=== PATIENT | male | born 1990 | race Caucasian/White ===

== ENCOUNTER 2023-02-21 13:42 | Inpatient (IN) ==
[2023-02-21 14:32] LABS: Basophils # (auto) 0.05 K/uL (0.00-0.20); Basophils % (auto) 0.8 %; Eosinophils # (auto) 0.26 K/uL (0.00-0.50); Eosinophils % (auto) 4.4 %; Hemoglobin 12.8 g/dl (14.0-18.0); Immature Granulocytes # (auto) 0.01 K/uL (0.01-0.20); Immature Granulocytes % (auto) 0.2 %; Lymphocytes # (auto) 1.33 K/uL (1.20-3.40); Lymphocytes % (auto) 22.3 %; Mean Corpuscular Hemoglobin 29.1 pg (25.0-34.0); Mean Corpuscular Hgb Conc 34.6 g/dL (32.0-36.0); Mean Corpuscular Volume 84.1 fL (80.0-100.0); Mean Platelet Volume 8.4 fL (9.4-12.4); Monocytes # (auto) 0.39 K/uL (0.11-0.59); Monocytes % (auto) 6.5 %; Neutrophils # (auto) 3.92 K/uL (1.40-6.50); Neutrophils % (auto) 65.8 %; Platelet Count 187 K/uL (130-400); RDW Coefficient of Variation 12.7 % (11.5-14.5); RDW Standard Deviation 39.1 fL (36.4-46.3); White Blood Count 5.96 K/ul (4.8-10.8)
[2023-02-21] MEDS ORDERED: PIPERACILLIN/TAZOBACTAM 4.5 GM/100 ML BAG IV ONE (14:43)
[2023-02-21] MEDS ORDERED: ACETAMINOPHEN 1,000 MG/100 ML VIAL IV STA (14:43)
[2023-02-21] MEDS ORDERED: SODIUM CHLORIDE 0.9% 1,000 ML IV ONE (14:43)
[2023-02-21 14:48] LABS: Albumin Level 4.3 gm/dl (3.4-5.0); BUN Creatinine Ratio 15.9 (10-20); Bilirubin,Total 0.6 mg/dl (0.2-1.0); Calcium 9.2 mg/dl (8.6-10.3); Creatinine Clr Calc Pharmacy 160.2 ml/min; Est GFR (African American) 146.6 ml/min; Est GFR (Non-African American) 126.5 ml/min; Globulin 2.2 gm/dl (2.5-4.0); Potassium 3.9 mmol/L (3.5-5.1); Total Protein 6.5 gm/dl (6.0-8.3)
--- NOTE | 2023-02-21 14:49 | Emergency Department Note ---
Impression & Plan Cellulitis of hand, left ED Provider Note HISTORY OF PRESENT ILLNESS: Patient is a 32-year-old male presenting with left hand redness and swelling. Patient reports that he thought he had an infected hair follicle 2 days ago and plucked the hair out of the dorsal surface of his left ring finger. He states that last night he noticed that the left ring finger was very red and swollen and went to [facility] where they lanced what they thought was an infected follicle. The patient reports no pus came out but he did have some blood drainage from the site. He states that since last night, there is swelling and redness and pain in his left hand is significantly worsened. He denies any measured fevers at home. He was given a dose of IM Rocephin yesterday at [facility] and was sent home with an oral antibiotic, the patient reports he has not taken it yet. Patient is left-hand dominant. He states that he is unable to move his left ring finger secondary to pain. He reports redness, swelling and pain extending from the ring finger down into his hand and extending into his wrist. Denies any numbness or tingling in the extremity. Denies any direct injury to the finger. His tetanus is up-to-date. ROS: as above PHYSICAL EXAM: Constitutional: Patient appears in no acute distress. HENT: Head: Normocephalic and atraumatic. Eyes: EOMI, PERRL Mouth/Throat: Mucous membranes moist. Neck: Trachea midline. Neck supple. Musculoskeletal: - LUE: Patient has redness and swelling to the dorsal surface of the hand. Left ring finger shows fusiform swelling. It is resting in a flexed position. Patient does have tenderness with passive extension of the finger. He has swelling and erythema and tenderness to palpation extending to the volar surface of the palm. Intact radial pulse. He does have a scab just proximal to the PIP joint on the ring finger. Able to flex and extend the wrist without significant pain. Skin: Warm and dry. No rash, erythema, pallor or cyanosis Psychiatric: Appropriate mood and affect for situation. Neurological: Alert and keenly responsive. CN II-XII grossly intact, moving all extremities equally and fully. MDM: - Vitals signs showed tachycardia - History obtained via patient. Patient presents with left hand redness, pain and swelling. Patient reports he thought he had an infected hair follicle on the dorsal surface of his left ring finger 2 days ago. He pluck the hair out but states that yesterday he noticed his left ring finger was very red and swollen and went to [facility]. He states that they drained some blood-tinged fluid from that area of his left finger. He denies any fevers. He states that since last night the swelling and redness of his left hand has significantly worsened. He is left-hand dominant. Tetanus is up-to-date - Chronic conditions affecting care: depression - Differential diagnoses include, but are not limited to: cellulitis of hand; flexor tenosynovitis; felon; paronychia - Order placed for continuous cardiac monitoring. At this time, monitor showed rate of 87 bpm with normal sinus rhythm, per my interpretation. - External medical records reviewed. PCP note dated 01/05/2023 was reviewed. Patient follows with his PCP for GERD and depression and was started on sertraline that was increased during that visit. - Laboratory workup interpreted by myself showed normal WBC; stable electrolytes; negative procalcitonin; elevated CRP (1.12) - Patient given 1L NS, 1g IV tylenol and IV zosyn for antibiotic coverage. - Patient has 4/4 Kanavel's signs, concerning for flexor tenosynovitis of left ring finger. - Discussed case with orthopedist continuous improvement facilitator, Dr. Frankel. He requested an MRI of the hand. Recommends admission to medicine. - Discussion was had with transitional care liaison about patient's case and need for admission - Hospitalist consulted for admission - [facility] ASSESSMENT AND PLAN: Diagnosis: cellulitis of left hand Plan: admit Past Med/Surg History Social History Smoking Status: Current every day smoker Tobacco Type: Cigarettes and E-cigarettes / Vaping Age Started Using Tobacco: 13; Second Hand Exposure: Yes; Do You Dip or Chew Tobacco: Yes; Hx Alcohol Use: No Hx Substance Use: No Preferred Language: Maori Communication Ability: Effective Beliefs That Will Affect Care: None marital status: Single Current Living Situation: Significant Other current occupational status: employed How many Children do You have: 0 Feels Safe at Home: Yes Childhood Exposure to Second-Hand Smoke: Yes Diet: regular caffeine: Yes during the past year weight has: remained stable Dental Care, Regularly: No Physical Activity Frequency: Daily Seatbelt Use: always Sunscreen Use: Yes Allergies Allergies Allergy/AdvReac Type Severity Reaction Status Date / Time No Known Allergies Allergy Verified 01/05/23 11:38 Home Meds Home Medications Medication Instructions Recorded Confirmed buprenorphine HCl 8 mg sublingual 8 mg sublingual DAILY 01/29/22 01/05/23 tablet Previous Rx's Medication Instructions Recorded pantoprazole 40 mg tablet,delayed 40 mg PO BID #60 tabs 01/05/23 release Results & Data (ED) Vital Signs Vital Signs - 24 hr 02/21/23 13:46 02/21/23 13:58 02/21/23 14:12 Temperature 36.6 C 36.8 C Temperature Source Temporal Artery Scan Oral Pulse Rate 105 H Pulse Rate [Apical] 88 Pulse Rhythm [Apical] Regular Pulse Strength [Apical] Normal Respiratory Rate 19 16 Respiratory Effort / Characteristics Non-Labored Spontaneous Respiratory Depth Normal Respiratory Pattern Regular Blood Pressure 140/85 Blood Pressure Mean 103 Pulse Oximetry 95 96 97 Oxygen Delivery Method Room Air Room Air Room Air Sepsis Recent Fever Within 48 Hours No Sepsis New/Unexplained Change in Mental Status N/A Sepsis Action Taken by Nursing No Action Required 02/21/23 15:25 Temperature Temperature Source Pulse Rate 94 H Pulse Rate [Apical] Pulse Rhythm [Apical] Pulse Strength [Apical] Respiratory Rate Respiratory Effort / Characteristics Respiratory Depth Respiratory Pattern Blood Pressure Blood Pressure Mean Pulse Oximetry Oxygen Delivery Method Sepsis Recent Fever Within 48 Hours Sepsis New/Unexplained Change in Mental Status Sepsis Action Taken by Nursing Laboratory Data 02/21/23 14:17 02/21/23 14:17 Lab Results 02/21/23 Range/Units 14:17 WBC 5.96 (4.8-10.8) K/ul RBC 4.40 L (4.70-6.10) M/uL Hgb 12.8 L (14.0-18.0) g/dl Hct 37.0 L (42.0-52.0) % MCV 84.1 (80.0-100.0) fL MCH 29.1 (25.0-34.0) pg MCHC 34.6 (32.0-36.0) g/dL RDW Std Deviation 39.1 (36.4-46.3) fL RDW Coeff of Eric 12.7 (11.5-14.5) % Plt Count 187 (130-400) K/uL MPV 8.4 L (9.4-12.4) fL Immature Gran % (Auto) 0.2 % Neut % (Auto) 65.8 % Lymph % (Auto) 22.3 % [place] % (Auto) 6.5 % Eos % (Auto) 4.4 % Baso % (Auto) 0.8 % Neut # (Auto) 3.92 (1.40-6.50) K/uL Lymph # (Auto) 1.33 (1.20-3.40) K/uL [place] # (Auto) 0.39 (0.11-0.59) K/uL Eos # (Auto) 0.26 (0.00-0.50) K/uL Baso # (Auto) 0.05 (0.00-0.20) K/uL Immature Gran # (Auto) 0.01 (0.01-0.20) K/uL Sodium 139 (136-145) mmol/L Potassium 3.9 (3.5-5.1) mmol/L Chloride 105 (98-107) mmol/L Carbon Dioxide 28 (21-32) mmol/L Anion Gap 6 (3-11) BUN 11 (6-23) mg/dl Creatinine 0.69 (0.6-1.4) mg/dl Est Cr Clr Drug Dosing 160.2 ml/min Est GFR ( Amer) 146.6 ml/min Est GFR (Non-Af Amer) 126.5 ml/min BUN/Creatinine Ratio 15.9 (10-20) Glucose 94 (70-99(Fasting)) mg/dl Lactate 1.0 (0.4-2.0) mmol/L Calcium 9.2 (8.6-10.3) mg/dl Total Bilirubin 0.6 (0.2-1.0) mg/dl AST 29 (13-39) U/L ALT 25 (7-52) U/L Alkaline Phosphatase 47 (34-104) U/L C-Reactive Protein 1.12 H (0-0.5) mg/dl Total Protein 6.5 (6.0-8.3) gm/dl Albumin 4.3 (3.4-5.0) gm/dl Globulin 2.2 L (2.5-4.0) gm/dl Albumin/Globulin Ratio 2.0 (0.9-2) Procalcitonin < 0.05 (0-0.5) ng/ml Administered Medications Discontinued Medications Sodium Chloride (Nss) 1,000 mls @ 999 mls/hr IV .Q1H1M ONE Stop: 02/21/23 15:43 Last Admin: 02/21/23 15:06 Dose: 999 mls/hr Documented By: FUNMI Acetaminophen (Ofirmev) 1,000 mg in 100 mls @ 400 mls/hr IV NOW STA Stop: 02/21/23 14:57 Last Infusion: 02/21/23 15:46 Dose: Infused Documented By: Admin: 02/21/23 15:06 Dose: 400 mls/hr Documented By: FUNMI Piperacillin Sod/Tazobactam Sod (Zosyn) 4.5 gm in 100 mls @ 200 mls/hr IV NOW ONE Stop: 02/21/23 15:12 Last Admin: 02/21/23 15:43 Dose: 200 mls/hr Documented By: FUNMI Discharge Plan Visit Data Chief Complaint: Infection Stated Complaint: INFECTED FINGER ED Provider: Franci Correa Discharge Problem: Cellulitis of hand, left Forms [facility] Pres[facility] Prescriptions: No Action buprenorphine HCl 8 mg tablet, sublingual 8 mg sublingual DAILY pantoprazole 40 mg tablet,delayed release (DR/EC) 40 mg PO BID Qty: 60 1RF Referrals Referrals: Buddy Lincoln DO [Primary Care Provider] -
[2023-02-21 15:10] LABS: C Reactive Protein 1.12 mg/dl (0-0.5)
--- NOTE | 2023-02-21 16:10 | History & Physical Report ---
Date of Service February 21, 2023 Assessment & Plan (1) Cellulitis of hand, left: Plan: Swollen and painful left dorsal ring finger x2 days Infected [facility] Patient is L-hand dominant Concern for flexor tenosynovitis No leukocytosis; afebrile CRP elevated at 1.12 Left hand MRI ordered, pending Patient was started on Zosyn in the ED Zosyn 4.5 g IV q8h Daptomycin IV q24h Acetaminophen 650 mg q6h as needed for pain Orthopedic surgery consulted A.m. CBC, BMP, CRP (2) Opioid use disorder in remission: Plan: Patient is currently in a Suboxone program Continue buprenorphine SL daily (3) GERD (gastroesophageal reflux disease): Plan: Continue pantoprazole (4) Depression: Plan: Patient is no longer taking sertraline Plan Disposition: Admit to [facility] Full code Regular diet VTE PPx: Lovenox 40 mg SQ q24h History of Present Illness Primary Care Provider: DO Krupa Valverdee is a 32-year-old male with PMH of GERD, depression, and opioid use disorder in remission. He presented for a swollen and painful left hand x2 days. [facility] and had an infected hair follicle lanced on the dorsal aspect of his left ring finger. No purulent drainage upon lancing, only blood. The patient reports he got an antibiotic given in the rectum [facility] at [facility] (likely ceftri[facility]one), and was sent home on a antibiotic prescription which she is not taking it. At present, the left fourth digit is stuck in flexion and unable to extend fully. He rates the pain in his left dorsal hand as 6/10. He describes it as constant, throbbing. The pain radiates to the mid forearm, and is warm to touch. The patient is left-hand dominant. He has a history of plucking hairs on his left fourth digit. It should be noted that the patient has been taking amoxicillin but unknown dose, 1 tablet daily x3 days; he obtain this from an old leftover prescription. Patient denies alcohol and recreational drug use. He endorses tobacco cigarette smoking; 1 pack/day; and vaping. He took his buprenorphine this morning; no other medications. Vital stable at time of admission. ED course: IVF Acetaminophen 1000 mg IV Zosyn 4.5 g IV ROS: Patient endorses left dorsal hand pain, left fourth digit pain/swelling, and fatigue. Patient denies fever, chills, sweats, dizziness, lightheadedness, body aches, CP, SOB, abdominal pain, N/V/D, burning with urination, blood in the urine/stool, Allergies Allergy/AdvReac Type Severity Reaction Status Date / Time No Known Allergies Allergy Verified 01/05/23 11:38 Home Medications Medication Instructions Recorded Confirmed Type buprenorphine HCl 8 mg sublingual 8 mg sublingual DAILY 01/29/22 02/21/23 History tablet pantoprazole 40 mg tablet,delayed 40 mg PO BID PRN stomach 02/21/23 02/21/23 History release indigestion Past Med/Surg History Social History Smoking Status: Current every day smoker Tobacco Type: Cigarettes and E-cigarettes / Vaping Age Started Using Tobacco: 13; Second Hand Exposure: No; Do You Dip or Chew Tobacco: No; Tobacco Cessation Education Requested by Patient: No Hx Alcohol Use: No Hx Substance Use: Yes Substance Use Type Other:: on sobutex (prescribed) Preferred Language: Canadian Communication Ability: Effective Administration Internship Required: No Beliefs That Will Affect Care: None marital status: Single Current Living Situation: Significant Other current occupational status: employed How many Children do You have: 0 Other Information That Helps Us Care for You: No Feels Safe at Home: Yes Childhood Exposure to Second-Hand Smoke: Yes Diet: regular caffeine: Yes during the past year weight has: remained stable Dental Care, Regularly: No Physical Activity Frequency: Daily Seatbelt Use: always Sunscreen Use: Yes Assistive Devices: None Review of Systems 2 Review of Systems: See HPI above Physical Exam 2 Physical Exam: General: no acute distress; non-toxic appearing; well-nourished; cooperative HEENT: normocephalic, atraumatic; no scleral icterus; PERRLA w/ EOMs intact; moist mucus membrane; tongue stud; vision and hearing grossly intact Neck: supple; no JVD; no lymphadenopathy; trachea midline Skin: warm, dry without signs of tenting; no cyanosis; no rashes, bruising, lesions, or erythema noted Right hand: Dorsal aspect of right hand is erythematous to the wrist, hot to touch; right fourth digit scabbing, swollen at the proximal MCP (see photo below); fourth digit stuck in flexion, unable to fully extend CV: chest wall NTP; RRR; S1/S2 normal; no murmurs/rubs/gallops; pulses intact and symmetric at radial, DP, and PT Lungs: no acute respiratory distress; symmetrical chest wall expansion; clear breath sounds across all lung franco w/o adventitious sounds; no wheezing ABD: Soft, NTP; BS present; no rebound/guarding; no ascites; no distention; negative CVA tenderness MSK: no tics or fasciculations; no edema noted in the LEs b/l Neuro: A&Ox3; normal mood and affect; fluent speech; no focal deficits; sensation grossly intact in the LEs B/L; sensation intact to distal tip of fourth digit on left hand Results & Data Results & Data Vital Signs (Past 12 Hours) Vital Signs Temp Pulse Pulse Resp BP Pulse Ox O2 Del Method 02/21/23 15:25 94 H 02/21/23 14:12 97 Room Air 02/21/23 13:58 36.8 C 88 16 96 Room Air 02/21/23 13:46 36.6 C 105 H 19 140/85 95 Room Air Laboratory Results Abnormal lab results 02/21/23 Range/Units 14:17 RBC 4.40 L (4.70-6.10) M/uL Hgb 12.8 L (14.0-18.0) g/dl Hct 37.0 L (42.0-52.0) % MPV 8.4 L (9.4-12.4) fL C-Reactive Protein 1.12 H (0-0.5) mg/dl Globulin 2.2 L (2.5-4.0) gm/dl Diagnostic Findings Hand MRI 02/21/23 15:53 MR hand LT wo/w con HISTORY: Left hand swelling and pain. left ring finger concern for flexor tenosynovitis TECHNIQUE: Multiplanar multisequence MRI of the left hand was performed both before and after the intravenous administration of 8 cc of Gadavist contrast. COMPARISON STUDY: None. FINDINGS: There is a normal marrow signal intensity seen throughout the visualized osseous structures. No fracture or dislocation within the left hand. No destructive changes to suggest an osteomyelitis. Diffuse subcutaneous edema most pronounced within the dorsum of the hand and fourth finger with associated enhancement. This favors a cellulitis. The flexor and extensor tendons are normal and course, caliber, and signal intensity. No fluid within the tendon sheaths to suggest a tenosynovitis. There is a skin marker overlying the dorsal aspect of the proximal ring finger at the level the proximal phalanx. Deep to the skin marker there is an area of hypoenhancement within the subcutaneous soft tissues measuring approximately 19 x 10 x 5 mm. Therefore, this is consistent with a small subcutaneous abscess. IMPRESSION: 1. Diffuse subcutaneous edema and enhancement within the soft tissues of the left hand most pronounced within the dorsum of the hand and fourth finger. This consistent with a cellulitis. 2. No evidence for osteomyelitis. 3. There is a skin marker overlying the dorsal aspect of the proximal ring finger at the level the proximal phalanx. Deep to the skin marker there is an area of hypoenhancement within the subcutaneous soft tissues measuring approximately 19 x 10 x 5 mm. Therefore, this is consistent with a small subcutaneous abscess. ACT 112: Negative or not required by law. Electronically signed by: Charly Ellison M.D. 02/21/2023 6:07 PM Code Status & VTE Plan Code Status Full code VTE Prophylaxis Plan VTE Prophylaxis will be ordered: Yes Supervising Physician Co-Signing Physician Notes Patient seen and examined, chart reviewed, case discussed with Charly De Jesus PA-C and I agree with the assessment and plan as above except as otherwise noted Labs and images reviewed Kehinde is a 32-year-old male with a past medical history of alcohol and opiate abuse on buprenorphine recently tapered from 8 mg twice daily down to 8 mg daily and takes 4 mg twice daily who presents with L hand 4th finger cellulitis ?tenosynovitis. WOrsening for several days, was lanced at urgent care. Was prescribed bactrim after but did not take this. No purulence. Progressive pain and now with severe pain on passive extension concerning for tenosynovitis.Radial pulse intact in L hand. sensation intact in all 5 digits. flexion/extension intact with 5/5 strength, but pain limited at maximum range of motion. MRI pending. Zosyn/dapto ordred on admit.. Pt reports he developed hives/local swelling after completion of dapto, switch to vanc at next dose which is not due until 02/22 1800hrs. Pt also was self administering suboxone. Pt volentarily handed these over to staff, will be pharmacy administered. Reports he splits his 8mg as 4mg BID, has only taken 4 mg today. Updated order, pills sent ot lockup w/ security by nursing. Ortho consulted. Agree w/ assessment and management as above. PG Care Time/CCT Total # of Minutes Spent Total Time Spent with Patient: Total time spent is greater than 50% in coordination of care (as documented) at patient's floor/unit and/or counseling patient: Coding [place] [address] INT INP/OBS CARE 1/40MIN Patient Type Established History Detailed Exam Detailed Medical Decision Making Low Complexity Diagnoses Cellulitis of hand, left L03.114 Opioid use disorder in remission F11.91 GERD (gastroesophageal reflux disease) K21.9 Depression F32.A
[2023-02-21] MEDS ORDERED: GADOBUTROL 30ML VIAL IV ONE (17:13)
--- NOTE | 2023-02-21 18:10 | Magnetic Resonance Report ---
MR hand LT wo/w con HISTORY: Left hand swelling and pain. left ring finger concern for flexor tenosynovitis TECHNIQUE: Multiplanar multisequence MRI of the left hand was performed both before and after the int ravenous administration of 8 cc of Gadavist contrast. COMPARISON STUDY: None. FINDINGS: There is a normal marrow signal intensity seen throughout the visualized osseous structures . No fracture or dislocation within the left hand. No destructive changes to suggest an osteomyelitis . Diffuse subcutaneous edema most pronounced within the dorsum of the hand and fourth finger with ass ociated enhancement. This favors a cellulitis. The flexor and extensor tendons are normal and course, caliber, and signal intensity. No fluid within the tendon sheaths to suggest a tenosynovitis. There is a skin marker overlying the dorsal aspect of the proximal ring finger at the level the proximal ph alanx. Deep to the skin marker there is an area of hypoenhancement within the subcutaneous soft tissu es measuring approximately 19 x 10 x 5 mm. Therefore, this is consistent with a small subcutaneous ab scess. IMPRESSION: 1. Diffuse subcutaneous edema and enhancement within the soft tissues of the left hand most pronounce d within the dorsum of the hand and fourth finger. This consistent with a cellulitis. 2. No evidence for osteomyelitis. 3. There is a skin marker overlying the dorsal aspect of the proximal ring finger at the level the pr oximal phalanx. Deep to the skin marker there is an area of hypoenhancement within the subcutaneous s oft tissues measuring approximately 19 x 10 x 5 mm. Therefore, this is consistent with a small subcut aneous abscess. ACT 112: Negative or not required by law. Electronically signed by: Charly Ellison M.D. 02/21/2023 6:07 PM
--- NOTE | 2023-02-21 18:20 | Orthopedic Consultation ---
Date of Consultation February 21, 2023 Assessment & Plan (1) Cellulitis of hand, left: By history, exam, and imaging, this is very consistent with cellulitis on the dorsal aspect of the left ring finger and dorsum of the hand. No evidence of infectious flexor tenosynovitis, septic arthritis, or osteomyelitis. No convincing evidence of abscess. I would recommend treatment of the cellulitis with IV antibiotics and monitoring for resolution. No indication for urgent orthopedic surgical intervention at this point. History of Present Illness Reason for Consultation: "concern for left ring finger flexor tenosynovitis" Requesting Physician: Dr. Correa History of Present Illness Mr. Lindsey is a 32-year-old ambidextrous male who reports about 3 days of worsening pain and swelling on the dorsal aspect of his left ring finger. On 02/18/23 he noted a small infected hair follicle on the dorsal aspect of the ring finger at the level of the proximal phalanx. He picked at it and pulled the hair follicle, but the next day he had significantly worsening pain and swelling in the area. He took some antibiotics that he had laying around at home, but he is unsure what these were. On 02/20 he had continued pain and swelling, and went to an urgent care. He states that they lanced the area of the infected hair follicle, but he denies any purulent drainage; he states that there was a lot of bloody drainage. He was given an intramuscular dose of antibiotics, and was given a prescription for oral Bactrim, but he has not started that yet. He then presented to the emergency room today for continued pain, swelling, and difficulty with motion in the ring finger. He has been given 1 dose of Zosyn in the ER so far, and he states that his hand and finger already feel better. Allergies Allergy/AdvReac Type Severity Reaction Status Date / Time No Known Allergies Allergy Verified 01/05/23 11:38 Home Medications Medication Instructions Recorded Confirmed Type buprenorphine HCl 8 mg sublingual 8 mg sublingual DAILY 01/29/22 02/21/23 History tablet pantoprazole 40 mg tablet,delayed 40 mg PO BID PRN stomach 02/21/23 02/21/23 History release indigestion Patient History Social History Smoking Status: Current every day smoker Tobacco Type: Cigarettes and E-cigarettes / Vaping Age Started Using Tobacco: 13; Second Hand Exposure: Yes; Do You Dip or Chew Tobacco: Yes; Hx Alcohol Use: No Hx Substance Use: No Preferred Language: Vietnamese Communication Ability: Effective Beliefs That Will Affect Care: None marital status: Single Current Living Situation: Significant Other current occupational status: employed How many Children do You have: 0 Feels Safe at Home: Yes Childhood Exposure to Second-Hand Smoke: Yes Diet: regular caffeine: Yes during the past year weight has: remained stable Dental Care, Regularly: No Physical Activity Frequency: Daily Seatbelt Use: always Sunscreen Use: Yes Physical Exam Physical Exam: Examination of the left ring finger reveals a small laceration about 3 mm in length on the dorsal aspect of the ring finger at the level of the proximal phalanx, consistent with his history of a lancing in the urgent care. No active or expressible drainage. There is surrounding erythema and mild induration that extends into the dorsum of the hand. No fluctuance or palpable fluid collections. The swelling and induration is clearly much more on the dorsal aspect of the finger than volar. No significant swelling, erythema, or tenderness to palpation along the flexor tendon sheath volarly. No significant pain with range of motion of the MCP and PIP joints. Results & Data Vital Signs (Past 12 Hours) Vital Signs Temp Pulse Pulse Resp BP Pulse Ox O2 Del Method 02/21/23 15:25 94 H 02/21/23 14:12 97 Room Air 02/21/23 13:58 36.8 C 88 16 96 Room Air 02/21/23 13:46 36.6 C 105 H 19 140/85 95 Room Air Laboratory Results WBC - 5.96 CRP - 1.12 Diagnostic Findings MRI of the left hand was independently interpreted by me. It shows diffuse edema within the dorsal subcutaneous tissues consistent with cellulitis. No evidence of osteomyelitis or fluid around the flexor tendon sheaths to suggest infectious flexor tenosynovitis. No fluid within the MCP or PIP joints to suggest septic arthritis. No obvious evidence of abscess.
[2023-02-21] MEDS: PIPERACILLIN/TAZOBACTAM 4.5 GM in DEXTROSE 5% MINI-B 100 ML IV SCH ×2 (19:45→20:25)
[2023-02-21] MEDS ORDERED: DAPTOmycin 300 MG in SYRINGE 0 ML IV SCH (20:00)
[2023-02-21] MEDS: ENOXAPARIN INJ 40 MG/0.4 ML SYR SQ SCH (20:29)
[2023-02-21] MEDS: buprenorphine HCL 8 MG SUBL SL SCH (22:35)
[2023-02-21] MEDS: PANTOprazole 40 MG TAB PO PRN (22:59)
[2023-02-22] MEDS: PIPERACILLIN/TAZOBACTAM 4.5 GM in DEXTROSE 5% MINI-B 100 ML IV SCH ×3 (04:43→20:00)
[2023-02-22] MEDS: ACETAMINOPHEN 500 MG TAB PO PRN ×2 (08:07→16:59)
[2023-02-22] MEDS: buprenorphine HCL 8 MG SUBL SL SCH ×2 (08:07→20:52)
[2023-02-22] MEDS ORDERED: buprenorphine HCL 8 MG SUBL SL SCH (09:00)
[2023-02-22 09:03] LABS: Basophils # (auto) 0.06 K/uL (0.00-0.20); Basophils % (auto) 1.2 %; Eosinophils # (auto) 0.39 K/uL (0.00-0.50); Eosinophils % (auto) 7.9 %; Hematocrit (blood only) 38.6 % (42.0-52.0); Hemoglobin 13.2 g/dl (14.0-18.0); Immature Granulocytes # (auto) 0.01 K/uL (0.01-0.20); Immature Granulocytes % (auto) 0.2 %; Lymphocytes # (auto) 1.83 K/uL (1.20-3.40); Lymphocytes % (auto) 37.1 %; Mean Corpuscular Hemoglobin 28.7 pg (25.0-34.0); Mean Corpuscular Hgb Conc 34.2 g/dL (32.0-36.0); Mean Corpuscular Volume 83.9 fL (80.0-100.0); Mean Platelet Volume 8.1 fL (9.4-12.4); Monocytes # (auto) 0.42 K/uL (0.11-0.59); Monocytes % (auto) 8.5 %; Neutrophils # (auto) 2.22 K/uL (1.40-6.50); Neutrophils % (auto) 45.1 %; Platelet Count 192 K/uL (130-400); RDW Coefficient of Variation 12.9 % (11.5-14.5); RDW Standard Deviation 39.6 fL (36.4-46.3); White Blood Count 4.93 K/ul (4.8-10.8)
[2023-02-22 09:18] LABS: BUN Creatinine Ratio 13.7 (10-20); C Reactive Protein 1.01 mg/dl (0-0.5); Calcium 9.4 mg/dl (8.6-10.3); Creatinine Clr Calc Pharmacy 151.4 ml/min; Est GFR (African American) 143.3 ml/min; Est GFR (Non-African American) 123.6 ml/min; Potassium 3.8 mmol/L (3.5-5.1)
[2023-02-22] MEDS ORDERED: VANCOMYCIN CONSULT ACTIVE PRN (09:56)
--- NOTE | 2023-02-22 10:24 | Orthopedic Progress Note ---
Date of Service February 22, 2023 Assessment & Plan (1) Cellulitis of hand, left: Plan: I discussed the history and exam with the patient just as Dr. Frankel had yesterday. We discussed that it may take multiple doses of the antibiotics before we see significant improvement in the hand. However, with exam findings as well as the MRI findings, there does not appear to be any surgical treatment necessary at this time. Continue IV antibiotics--Zosyn and Vanco. If he continues to make improvements with the antibiotics, we discussed no surgical treatment and eventual transition to oral antibiotics. Plan Patient seen and examined. Agree with KEYON Antonio's note as above. Objectively, his left hand looks improved to me compared to yesterday. He has less swelling and erythema in his hand. He still has some localized swelling and erythema directly around the previous folliculitis and lancing site on the dorsal aspect of the ring finger proximal phalanx. He appears to have better range of motion. He does admit to generalized poor pain tolerance. I encouraged aggressive hand/finger range of motion to prevent stiffness. I think he would likely benefit from additional 1 to 2 days of IV antibiotics to treat the cellulitis, then likely transition to oral antibiotics at that point. I do not think he will require surgical intervention for this. Admission and Anticipated Discharge Date Admission Date: February 21, 2023 Subjective Patient has concerned that the left ring finger/hand infection has not made many improvements since last evening. States he has had 2 doses of IV antibiotics and is concerned that the area has not improved significantly. He does feel th at there has been some improvement in pain. However, he still having quite a bit of pain within the finger. Physical Exam Constitutional: WD/WN, vitals as above no acute distress (However, the patient appears anxious and is pacing in the room throughout t) Musculoskeletal: Extremities: + hand abnormality Left (Ring finger: Mild to moderate erythema around laceration at the dorsal finger. No streaking. Good range of motion for the swelling that is present. No drainage.) Skin: Trauma: no evidence of skin trauma Neurologic: normal touch/pain/proprioception Psychiatric: Orientation: alert and oriented x 3 Speech: normal rate/rhythm/volume of speech Affect: + anxious affect Results & Data Vital Signs (Past 12 Hours) Vital Signs Temp Pulse Resp BP Pulse Ox O2 Del Method 02/22/23 08:00 36.7 C 89 24 121/79 97 Room Air Laboratory Results Laboratory Tests 02/21/23 02/22/23 02/22/23 14:17 08:39 08:39 WBC 4.93 Hgb 13.2 L Hct 38.6 L BUN 10 Creatinine 0.73 C-Reactive Protein 1.12 H 1.01 H
[2023-02-22] MEDS ORDERED: VANCOMYCIN HCL 1,750 MG in SODIUM CHLORIDE 0.9% 500 ML IV ONE (10:30)
--- NOTE | 2023-02-22 11:13 | Pharmacy Report ---
Pharmacy PK ABX Note - Date of Service February 22, 2023 - Assessment and Plan Assessment 32 year old M receiving VANCOMCYIN/ZOSYN for treatment of left hand cellulitis. No previous microbiology data. No current cultures. Patient received a dose of daptomycin yesterday, reported some redness around IV site, switched to vancomycin. Plan Vancomycin * Loading dose: 1750 mg IV x 1 * Maintenance dose: 1250 mg IV every 8 hours * Regimen is predicted to achieve target AUC/EMANUEL of 400-600 mg/L.hr * Random level is ordered for 02/23 @ 0800 Pharmacy will continue to follow and will adjust dose/frequency as necessary. Thank you. Pharmacy has transitioned to AUC monitoring for vancomycin. AUC/EMANUEL is the preferred PK/PD target and is associated with decreased risk of nephrotoxicity compared to traditional trough targets.
--- NOTE | 2023-02-22 15:03 | Hospitalist Progress Note ---
Date of Service February 22, 2023 Assessment & Plan (1) Cellulitis of hand, left: Plan: - Swollen and painful left dorsal ring finger x2 days. Infected hair follicle l[facility] at [facility] on 02/20 - Patient is L-hand dominant - CRP elevated at 1.12. WBC 4.93 - Acetaminophen 1000 mg q8h as needed for pain - Orthopedic surgery consulted - MRI not suggestive of flexor tenosynovitis - Does not require surgical intervention at this time. Continue IV abx - Zosyn 4.5 g IV q8h and Daptomycin IV q24h started in ER - local reaction to Dapto --> switched to vancomycin (pharmacy dosing) A.m. CBC, BMP, CRP (2) Opioid use disorder in remission: Plan: Patient is currently in a Suboxone program - states he has been trying to wean off. Discussed staying at current dose and continue to wean post hosp itialization Continue buprenorphine SL daily (3) GERD (gastroesophageal reflux disease): Plan: Continue pantoprazole - patient takes this as needed (4) Depression: Plan: Patient is no longer taking sertraline - reports caused suicidal thoughts Plan Disposition: continued inpatient stay VTE PPx: Lovenox 40 mg SQ q24h Admission and Anticipated Discharge Date Admission Date: February 21, 2023 Supervising Physician Co-Signing Physician Notes Attending Attestation - Chart reviewed, care plan d/w KEYON Francisco. I agree w/ the anguiano components of her documentation. Should f/u with [facility] tomorrow to check on results of wound culture from the finger. Appreciate ortho assistance. Kadeem Lay MD Subjective Patient seen sitting on the side of the bed. Reports that he is concerned that he is not getting better because his hand still seems to be very red and swollen. I did not personally see him yesterday however compared to pictures in the chart I do believe he is improving. He does state that he is able to flex his finger a little bit more. denies any fevers or chills, reports good appetite. did request Tylenol this morning for pain control and do feel like this has helped. denies chest pain or shortness of breath. When discussing his home medications states that he has been trying to wean himself off the Suboxone, did stop cold turkey for a few days and did not ary ate this well so takes half a tab or tab as needed at home. understands that we will continue to give him the 4 mg tab while he is here and he can continue to wean with his provider when he is discharged. Review of Systems Review of Systems: All systems reviewed & are unremarkable except as noted in Subjective Physical Exam Physical Exam: General: WN/WD, NAD, VS as above Resp: normal respiratory effort, lungs clear to auscultation CV: RRR, no murmur, no edema Abd: normal bowel sounds, non tender, no hepatosplenomegaly Extremities: Swelling over dorsal aspect of left hand, extending down ring finger. Mild erythema near entry wound where previous drainage was attempted. Very limited ROM with extension of that finger. Neuro: A&O x3, Skin: intact, no lesions noted Results & Data Results & Data Vital Signs (Past 12 Hours) Vital Signs Temp Pulse Resp BP Pulse Ox O2 Del Method 02/22/23 08:00 36.7 C 89 24 121/79 97 Room Air Laboratory Results reviewed CBC, chemistry, and CRP Diagnostic Findings reviewed hand MRI PG Care Time/CCT Total # of Minutes Spent Total Time Spent with Patient: Total time spent is greater than 50% in coordination of care (as documented) at patient's floor/unit and/or counseling patient: Coding Level of Care Code 27612 SUB INP/OBS CARE 2/35MIN Diagnoses Cellulitis of hand, left L03.114 Opioid use disorder in remission F11.91 GERD (gastroesophageal reflux disease) K21.9 Depression F32.A
[2023-02-22] MEDS: VANCOMYCIN HCL 1,250 MG in SODIUM CHLORIDE 0.9% 250 ML IV SCH (17:52)
[2023-02-22] MEDS: ENOXAPARIN INJ 40 MG/0.4 ML SYR SQ SCH (20:53)
[2023-02-22] MEDS ORDERED: VANCOMYCIN HCL 1,250 MG in SODIUM CHLORIDE 0.9% 500 ML IV SCH (21:00)
[2023-02-23] MEDS: VANCOMYCIN HCL 1,250 MG in SODIUM CHLORIDE 0.9% 250 ML IV SCH ×3 (01:20→18:03)
[2023-02-23] MEDS: PIPERACILLIN/TAZOBACTAM 4.5 GM in DEXTROSE 5% MINI-B 100 ML IV SCH ×3 (04:29→20:10)
[2023-02-23] MEDS ORDERED: VANCOMYCIN LEVEL ONE (08:00)
--- NOTE | 2023-02-23 08:23 | Orthopedic Progress Note ---
Date of Service February 23, 2023 Assessment & Plan (1) Cellulitis of hand, left: Plan: The patient is continuing to do well. We discussed continued IV antibiotics for approximately 1-2 days then transition to oral antibiotics. He may continue activity as tolerated and range of motion as tolerated with the left hand. No surgical intervention will be needed at this time. Orthopedics will sign off at this time. He may follow-up with us outpatient on an as-needed basis or if his symptoms worsen. Plan Patient seen and examined. Agree with KEYON Antonio's note as above. Objectively, his left hand looks improved to me compared to yesterday. He has less swelling and erythema in his hand. He still has some localized swelling and erythema directly around the previous folliculitis and lancing site on the dorsal aspect of the ring finger proximal phalanx. He appears to have better range of motion. He does admit to generalized poor pain tolerance. I encouraged aggressive hand/finger range of motion to prevent stiffness. I think he would likely benefit from additional 1 to 2 days of IV antibiotics to treat the cellulitis, then likely transition to oral antibiotics at that point. I do not think he will require surgical intervention for this. Admission and Anticipated Discharge Date Admission Date: February 21, 2023 Subjective Patient states he is feeling much better today. The pain and swelling is improved. He still having the worst pain around the area that was lanced and proximal toward the MP joint. Otherwise, he is much better and his range of motion is improved. Physical Exam Constitutional: WD/WN, vitals as above no acute distress (Sitting on the side of the bed eating breakfast.) Musculoskeletal: Extremities: + hand abnormality Left (Improved erythema and swelling of the left hand and ring finger. Healing lanced area. No drainage.) Skin: Trauma: no evidence of skin trauma Neurologic: normal touch/pain/proprioception Psychiatric: Orientation: alert and oriented x 3 Speech: normal rate/rhythm/volume of speech Results & Data Vital Signs (Past 12 Hours) Vital Signs Temp Pulse Resp BP Pulse Ox O2 Del Method 02/23/23 07:47 36.6 C 87 18 138/80 98 Room Air
[2023-02-23] MEDS: PANTOprazole 40 MG TAB PO PRN (08:34)
[2023-02-23] MEDS: buprenorphine HCL 8 MG SUBL SL SCH ×2 (08:34→20:10)
[2023-02-23 08:56] LABS: Basophils # (auto) 0.07 K/uL (0.00-0.20); Basophils % (auto) 1.6 %; Eosinophils # (auto) 0.41 K/uL (0.00-0.50); Eosinophils % (auto) 9.2 %; Hematocrit (blood only) 38.4 % (42.0-52.0); Hemoglobin 12.8 g/dl (14.0-18.0); Immature Granulocytes # (auto) 0.01 K/uL (0.01-0.20); Immature Granulocytes % (auto) 0.2 %; Lymphocytes # (auto) 1.76 K/uL (1.20-3.40); Lymphocytes % (auto) 39.6 %; Mean Corpuscular Hemoglobin 28.6 pg (25.0-34.0); Mean Corpuscular Hgb Conc 33.3 g/dL (32.0-36.0); Mean Corpuscular Volume 85.9 fL (80.0-100.0); Mean Platelet Volume 8.4 fL (9.4-12.4); Monocytes # (auto) 0.33 K/uL (0.11-0.59); Monocytes % (auto) 7.4 %; Neutrophils # (auto) 1.86 K/uL (1.40-6.50); Platelet Count 196 K/uL (130-400); RDW Coefficient of Variation 12.8 % (11.5-14.5); RDW Standard Deviation 39.8 fL (36.4-46.3); Red Blood Count 4.47 M/uL (4.70-6.10); White Blood Count 4.44 K/ul (4.8-10.8)
[2023-02-23 09:19] LABS: BUN Creatinine Ratio 10.7 (10-20); C Reactive Protein 0.7 mg/dl (0-0.5); Calcium 9.2 mg/dl (8.6-10.3); Creatinine Clr Calc Pharmacy 147.4 ml/min; Est GFR (African American) 141.7 ml/min; Est GFR (Non-African American) 122.2 ml/min; Potassium 3.9 mmol/L (3.5-5.1)
--- NOTE | 2023-02-23 09:28 | Pharmacy Report ---
Pharmacy PK ABX Note - Date of Service February 23, 2023 - Assessment and Plan Assessment 02/23: Reviewed vancomycin level which is predicted to acheive a level within goal range. Continue current regimen. Per ortho, 1-2 days more of IV antibiotics and then transition to oral. 02/22: 32 year old M receiving VANCOMCYIN/ZOSYN for treatment of left hand cellulitis. No previous microbiology data. No current cultures. Patient received a dose of daptomycin yesterday, reported some redness around IV site, switched to vancomycin. Plan Vancomycin * Continue maintenance dose of vancomycin 1250 mg IV every 8 hours * Regimen is predicted to achieve target AUC/EMANUEL of 400-600 mg/L.hr * Level to be ordered if vancomycin is continued beyond 48 hours * Daily serum creatinine ordered Pharmacy will continue to follow and will adjust dose/frequency as necessary. Thank you. Pharmacy has transitioned to AUC monitoring for vancomycin. AUC/EMANUEL is the preferred PK/PD target and is associated with decreased risk of nephrotoxicity compared to traditional trough targets.
[2023-02-23] MEDS: ACETAMINOPHEN 500 MG TAB PO PRN (09:59)
[2023-02-23] MEDS: ENOXAPARIN INJ 40 MG/0.4 ML SYR SQ SCH (20:11)
--- NOTE | 2023-02-23 21:53 | Hospitalist Progress Note ---
Date of Service February 23, 2023 Assessment & Plan (1) Cellulitis of hand, left: Plan: Left 4th finger and dorsal aspect of the hand. IMPROVED. Only remaining erythema is the proximal 4th finger. There was a small abscess on the finger on 02/20 - s/p I & D at [email or web address] in [place]. Wound cx pending (I called today to that location and confirmed such). Ortho is pleased with how he is doing and feels it does not need further I & D. MRI finger WITHOUT Toxic Tenosynovitis. Remains on zosyn/dapto. Can likely transition to PO keflex / doxy tomorrow and d/c home with close f/u. Recommended soaking hand in warm, soapy H20 4-5 times each day to help with pain and promote resolution. Nurses to provide this for him. (2) Opioid use disorder in remission: Plan: Patient is currently in a Suboxone program - states he has been trying to wean off. Prior provider discussed staying at current dose and continue to wean post hospitalization. Continue buprenorphine SL daily. (3) GERD (gastroesophageal reflux disease): Plan: Continue pantoprazole prn (4) Depression: Plan: Patient is no longer taking sertraline - reports caused suicidal thoughts Plan VTE PPx: Lovenox 40 mg SQ q24h Likely can d/c home tomorrow on PO abx Admission and Anticipated Discharge Date Admission Date: February 21, 2023 Subjective left hand cellulitis is resolved left 4th finger - proximal phalanx - slide forming machine tender, erythematous, and has a "head" he is tempted constantly to squeeze it overall the hand feels better states he had the 4th finger tiny abscess lanced at [facility] I called and spoke with their staff - wound culture indeed was collected but just sent to micro lab today; results still pending Review of Systems Review of Systems: gen - no fevers or chills GI - constipated; no diarrhea pulm - no dyspnea Physical Exam Physical Exam: gen - NAD, looks good mouth - MMM heart - RRR, s1 s2, no murmur lungs - CTA b/l abd - soft NT ND BS+ ext - no edema of feet, 2+ b/l pulses skin - no erythema of left hand (dorsal aspect); L 4th finger - proximal phalanx with erythema and swelling; indeed there is a punctate area in center with visible purulent material; mildly tender to touch in this area musculo - fairly good active ROM of the Left 4th finger; no tenosynovitis of the left 4th MCP, PIP, or DIP joints Results & Data Results & Data Vital Signs (Past 12 Hours) Vital Signs Temp Pulse Resp BP Pulse Ox O2 Del Method 02/23/23 21:46 36.6 C 92 H 18 143/77 H 99 Room Air 02/23/23 16:12 36.8 C 87 18 128/85 97 Room Air Laboratory Results Laboratory Results 02/23/23 08:33 WBC 4.44 L RBC 4.47 L Hgb 12.8 L Hct 38.4 L MCV 85.9 MCH 28.6 MCHC 33.3 RDW Std Deviation 39.8 RDW Coeff of Eric 12.8 Plt Count 196 MPV 8.4 L Immature Gran % (Auto) 0.2 Neut % (Auto) 42.0 Lymph % (Auto) 39.6 [place] % (Auto) 7.4 Eos % (Auto) 9.2 Baso % (Auto) 1.6 Neut # (Auto) 1.86 Lymph # (Auto) 1.76 [place] # (Auto) 0.33 Eos # (Auto) 0.41 Baso # (Auto) 0.07 Immature Gran # (Auto) 0.01 Sodium 140 Potassium 3.9 Chloride 107 Carbon Dioxide 27 Anion Gap 6 BUN 8 Creatinine 0.75 Est Cr Clr Drug Dosing 147.4 Est GFR ( Amer) 141.7 Est GFR (Non-Af Amer) 122.2 BUN/Creatinine Ratio 10.7 Glucose 85 Calcium 9.2 C-Reactive Protein 0.70 H Random Vancomycin 10.2 Diagnostic Findings wound cx left 4th finger - from [email or web address] - pending PG Care Time/CCT Total # of Minutes Spent Total Time Spent with Patient: Total time spent is greater than 50% in coordination of care (as documented) at patient's floor/unit and/or counseling patient: Coding Level of Care Code 91364 SUB INP/OBS CARE 1/25MIN Diagnoses Cellulitis of hand, left L03.114 Opioid use disorder in remission F11.91 GERD (gastroesophageal reflux disease) K21.9 Depression F32.A
[2023-02-24] MEDS: VANCOMYCIN HCL 1,250 MG in SODIUM CHLORIDE 0.9% 250 ML IV SCH ×2 (02:20→09:27)
[2023-02-24] MEDS: PIPERACILLIN/TAZOBACTAM 4.5 GM in DEXTROSE 5% MINI-B 100 ML IV SCH (04:30)
[2023-02-24] MEDS: ACETAMINOPHEN 500 MG TAB PO PRN (05:55)
[2023-02-24 06:33] LABS: Basophils # (auto) 0.06 K/uL (0.00-0.20); Basophils % (auto) 1.2 %; Eosinophils % (auto) 7.8 %; Hematocrit (blood only) 38.8 % (42.0-52.0); Hemoglobin 13.1 g/dl (14.0-18.0); Immature Granulocytes # (auto) 0.01 K/uL (0.01-0.20); Immature Granulocytes % (auto) 0.2 %; Lymphocytes # (auto) 2.17 K/uL (1.20-3.40); Lymphocytes % (auto) 42.4 %; Mean Corpuscular Hemoglobin 28.8 pg (25.0-34.0); Mean Corpuscular Hgb Conc 33.8 g/dL (32.0-36.0); Mean Corpuscular Volume 85.3 fL (80.0-100.0); Mean Platelet Volume 8.4 fL (9.4-12.4); Monocytes # (auto) 0.33 K/uL (0.11-0.59); Monocytes % (auto) 6.4 %; Neutrophils # (auto) 2.15 K/uL (1.40-6.50); Platelet Count 206 K/uL (130-400); RDW Coefficient of Variation 12.7 % (11.5-14.5); RDW Standard Deviation 39.4 fL (36.4-46.3); Red Blood Count 4.55 M/uL (4.70-6.10); White Blood Count 5.12 K/ul (4.8-10.8)
[2023-02-24 06:57] LABS: Anion Gap 5 (3-11); BUN Creatinine Ratio 10.1 (10-20); Blood Urea Nitrogen 7 mg/dl (6-23); C Reactive Protein < 0.50 mg/dl (0-0.5); Calcium 8.5 mg/dl (8.6-10.3); Carbon Dioxide 27 mmol/L (21-32); Chloride 108 mmol/L (98-107); Creatinine Clr Calc Pharmacy 160.2 ml/min; Est GFR (African American) 146.6 ml/min; Est GFR (Non-African American) 126.5 ml/min; Glucose 94 mg/dl (70-99(Fasting)); Potassium 3.8 mmol/L (3.5-5.1); Sodium 140 mmol/L (136-145)
[2023-02-24] MEDS: buprenorphine HCL 8 MG SUBL SL SCH (08:21)
--- NOTE | 2023-02-24 19:56 | Discharge Summary ---
Date of Service February 24, 2023 Admission HPI Per Admitting Provider Kehinde is a 32-year-old male with PMH of GERD, depression, and opioid use disorder in remission. He presented for a swollen and painful left hand x2 days. [facility] and had an infected hair follicle lanced on the dorsal aspect of his left ring finger. No purulent drainage upon lancing, only blood. The patient reports he got an antibiotic given in the rectum while at [facility] (likely ceftriaxone), and was sent home on a antibiotic prescription which she is not taking it. At present, the left fourth digit is stuck in flexion and unable to extend fully. He rates the pain in his left dorsal hand as 6/10. He describes it as constant, throbbing. The pain radiates to the mid forearm, and is warm to touch. The patient is left-hand dominant. He has a history of plucking hairs on his left fourth digit. It should be noted that the patient has been taking amoxicillin but unknown dose, 1 tablet daily x3 days; he obtain this from an old leftover prescription. Patient denies alcohol and recreational drug use. He endorses tobacco cigarette smoking; 1 pack/day; and vaping. He took his buprenorphine this morning; no other medications. Vital stable at time of admission. ED course: IVF Acetaminophen 1000 mg IV Zosyn 4.5 g IV ROS: Patient endorses left dorsal hand pain, left fourth digit pain/swelling, and fatigue. Patient denies fever, chills, sweats, dizziness, lightheadedness, body aches, CP, SOB, abdominal pain, N/V/D, burning with urination, blood in the urine/stool, Principal Diagnosis cellulitis of left fourth digit Discharge Exam PHYSICAL EXAMINATION Last 24h vital signs reviewed, see documentation in flowsheet General: comfortable appearing, no distress, Young well-appearing man walking in room Lungs: Normal respiratory effort. Abdomen: nondistended. Bowel sounds present. Extremities: Warm, dry, well-perfused. No extremity edema. erythema on dorsal aspect of left hand has completely resolved, he continues to have some darkening erythema without warmth in the proximal fourth digit, there is a small dry eschar approximately 5 mm overlying a small fold/fluctuant area near PIP, he is nontender in this area and has full range of motion of his hand Neuro: Alert and oriented x 4, face symmetric, moves 4 extremities well Psych: Normal affect and behavior Discharge Data Allergies Allergy/AdvReac Type Severity Reaction Status Date / Time No Known Allergies Allergy Verified 02/24/23 14:44 Consultations 02/21/23 16:01 Consult Orthopedic Surgery Stat 02/21/23 16:08 ED Decision to Admit Stat Ordered Studies 02/21/23 15:53 MRI Hand [MR hand LT wo/w con] Stat Hand MRI 02/21/23 15:53 MR hand LT wo/w con HISTORY: Left hand swelling and pain. left ring finger concern for flexor tenosynovitis TECHNIQUE: Multiplanar multisequence MRI of the left hand was performed both before and after the intravenous administration of 8 cc of Gadavist contrast. COMPARISON STUDY: None. FINDINGS: There is a normal marrow signal intensity seen throughout the visualized osseous structures. No fracture or dislocation within the left hand. No destructive changes to suggest an osteomyelitis. Diffuse subcutaneous edema most pronounced within the dorsum of the hand and fourth finger with associated enhancement. This favors a cellulitis. The flexor and extensor tendons are normal and course, caliber, and signal intensity. No fluid within the tendon sheaths to suggest a tenosynovitis. There is a skin marker overlying the dorsal aspect of the proximal ring finger at the level the proximal phalanx. Deep to the skin marker there is an area of hypoenhancement within the subcutaneous soft tissues measuring approximately 19 x 10 x 5 mm. Therefore, this is consistent with a small subcutaneous abscess. IMPRESSION: 1. Diffuse subcutaneous edema and enhancement within the soft tissues of the left hand most pronounced within the dorsum of the hand and fourth finger. This consistent with a cellulitis. 2. No evidence for osteomyelitis. 3. There is a skin marker overlying the dorsal aspect of the proximal ring finger at the level the proximal phalanx. Deep to the skin marker there is an area of hypoenhancement within the subcutaneous soft tissues measuring approximately 19 x 10 x 5 mm. Therefore, this is consistent with a small subcutaneous abscess. ACT 112: Negative or not required by law. Electronically signed by: Charly Ellison M.D. 02/21/2023 6:07 PM Hospital Course (1) Cellulitis of hand, left: Left 4th finger and dorsal aspect of the hand. IMPROVED. Only remaining erythema is the proximal 4th finger, Which is darkening in color and no longer warm. There was a small abscess on the finger on 02/20 - s/p I & D at [facility] in [place]. Wound cx pending - called 02/23 unfortunately the culture was not even submitted until 02/23 which was multiple days after collection and unlikely to have any significant growth Ortho is pleased with how he is doing and feels it does not need further I & D. MRI finger WITHOUT Toxic Tenosynovitis. initially treated with pip-tazo and daptomycin, discharged on his per his previously prescribed antibiotics Bactrim 1 double strength tab twice daily he has a 10-day supply in hand. I counseled him to take it for at least 7 days and may extend to 10 if symptoms not completely resolved. He has primary care follow-up today and hopefully can check back in in a week or 2 for resolution. Orthopedics advised that he may follow-up with them as needed. Recommended soaking hand in warm, soapy H20 4-5 times each day to help with pain and promote resolution. (2) Opioid use disorder in remission: Patient is currently in a Suboxone program - states he has been trying to wean off. Prior provider discussed staying at current dose and continue to wean post hospitalization. Continue buprenorphine SL daily. (3) GERD (gastroesophageal reflux disease): Continue pantoprazole prn (4) Depression: Patient is no longer taking sertraline - reports caused suicidal thoughts Total Time Total Time Spent Total Time Spent (In Minutes): 25 minutes Discharge Plan Discharge Items Patient Disposition: Home - Self-Care Reason For Visit: L 4TH DIGIT INFECTION, CELLULITIS Discharge Diagnosis: Left 4th digit cellulitis Condition on Discharge: Good Activity: As commented below Activity Comment: continue frequent range of motion exercises left hand Non-emergency contact: Primary Care Provider Call non-emergency contact if: you have any medication questions and your symptoms worsen Follow-up/Referrals: Jeyson Frankel M.D. [Physician] - Buddy Lincoln, [Primary Care Provider] - 03/03/23 1:00 pm Diet: Regular Addtl Attending Provider Instructions: You were treated with IV antibiotics for skin infection of left 4th finger This is almost always caused by strep or staph bacteria Continue regular soaks. If the wound drains cover with dry gauze and change once or twice a day or as needed. Cover with dry gauze and wear gloves at work until the inflammation and wound completely resolves. The antibiotics you already have from urgent care are good coverage for this infection. Take the antibiotics for at least 7 days, can extend to 10 days if not completely resolved. The urgent care took wound cultures, which are not resulted yet, but we called and they didn't send the culture to the lab until Thursday so seems unlikely to grow anything. Follow up with orthopedics if needed - Dr. Jeyson Frankel Pending Studies at Discharge: Yes Studies:: wound culture from [employer] Stand-Alone Forms: My [facility], Work/School Release, Smoking Cessation Medications and DC Order Prescriptions: New sulfamethoxazole-trimethoprim [Bactrim DS] 800-160 mg tablet 1 tab PO BID Qty: 1 0RF Continued buprenorphine HCl 8 mg tablet, sublingual 8 mg sublingual DAILY pantoprazole 40 mg tablet,delayed release (DR/EC) 40 mg PO BID PRN (Reason: stomach indigestion) Discharge Orders: Discharge Order (Routine); Ordered 02/24/23 Ordered By: Iraida Cao/Other Patient Handouts: Cellulitis Dc Admission Data Admit Date/Time: 02/21/23 16:51 Attending Provider: Iraida Andrews Admit Provider: Korey Murray Primary Care Provider: Buddy Lincoln Other Providers: Jeyson Frankel; Korey Murray Other Interventions: Discharge Summary Assessment (RN) Last Done: 02/24/23 08:42 Coding Level of Care Code 22481 IN/OBS DISCH 30 MIN/LESS Diagnoses Cellulitis of hand, left L03.114 Opioid use disorder in remission F11.91 GERD (gastroesophageal reflux disease) K21.9 Depression F32.A
== END 2023-02-24 09:38 | disposition home or self-care (01) | DRG 603 ==
LOC: ED 13:42 → SUATTDRO 16:51 → 3E 16:51